=== PATIENT | female | born 1985 | race Caucasian/White ===

== ENCOUNTER 2019-11-30 06:57 | Inpatient (IN) | payer MEDICAID ==
[~2019-11-30] VITALS: Ht 167.6 cm; Wt 109.8 kg
[2019-11-30] MEDS: LACTATED RINGERS 1,000 ML IV SCH ×2 (00:46→08:57)
[2019-11-30] MEDS ORDERED: CARBOPROST 250 MCG/ML AMP IM PRN (07:55)
[2019-11-30] MEDS ORDERED: PROMETHAZINE 25 MG/ML VIAL IVP PRN (07:55)
[2019-11-30] MEDS ORDERED: NALBUPHINE 10 MG/ML AMP IVP PRN (07:55)
[2019-11-30] MEDS ORDERED: OXYTOCIN 20 UNITS in LACTATED RINGERS 1,000 ML IV SCH (07:55)
[2019-11-30] MEDS ORDERED: METHYLERGONOVINE 0.2 MG/ML AMP IM PRN (07:55)
--- NOTE | 2019-11-30 08:33 | NUR ---
PATIENT HAS BEEN SCREENED AND CATEGORIZED LOW NUTRITION RISK. PATIENT WILL BE SEEN WITHIN 7 DAYS OF ADMISSION. 12/06/[address]
[2019-11-30 08:49] LABS: APPEARANCE,URINE CLEAR (CLEAR); BILIRUBIN,URINE NEGATIVE (NEGATIVE); BLOOD, URINE NEGATIVE (NEGATIVE); COLOR,URINE YELLOW (YELLOW); LEUKOCYTE ESTERASE ,URINE TRACE (NEGATIVE); NITRITE, URINE NEGATIVE (NEGATIVE); UGLUCOSE NEGATIVE (NEGATIVE)
[2019-11-30 08:58] LABS: BASOPHILS % (AUTO) 0.3 % (0.0-2.0); EOSINOPHILS # (AUTO) 0.1 K/uL (0-0.4); HEMATOCRIT 36.5 % (36-48); HEMOGLOBIN 12.3 g/dL (12.0-16.0); LYMPHOCYTES # (AUTO) 2.1 K/uL (2.5-16.5); LYMPHOCYTES % (AUTO) 28.7 % (20.5-51.1); MEAN CORPUSCULAR HEMOGLOBIN 30 pg (27-31); MEAN CORPUSCULAR HGB CONC 34 g/dL (33-37); MEAN CORPUSCULAR VOLUME 89.1 fL (80-94); MONOCYTES # (AUTO) 0.5 K/uL (0.8-1.0); MONOCYTES % (AUTO) 6.1 % (1.7-9.3); NEUTROPHILS # (AUTO) 4.7 K/uL (1.8-7.7); NEUTROPHILS % (AUTO) 63.9 % (42.2-75.2); PLATELET COUNT (AUTO) 179 K/uL (140-450); RED BLOOD CELL COUNT(AUTO) 4.09 MIL/uL (4.20-5.40); RED CELL DISTRIBUTION WIDTH 14.1 % (11.6-13.7); WHITE BLOOD COUNT (AUTO) 7.4 K/uL (4.8-10.8)
[2019-11-30 09:10] LABS: RBC,URINE 0-5 /HPF (0-5)
[2019-11-30] MEDS ORDERED: MISOPROSTOL 25 MCG TAB ONE (09:13)
[2019-11-30 09:20] LABS: ALBUMIN 2.6 g/dL (3.4-5.0); ANION GAP 14.5 (8-16); CREATININE 0.5 mg/dL (0.6-1.3); POTASSIUM 3.5 mmol/L (3.5-5.1); TOTAL BILIRUBIN 0.3 mg/dL (0.0-1.0)
[2019-11-30 10:16] VITALS: BP 133/84
[2019-11-30] MEDS ORDERED: MISOPROSTOL 25 MCG TAB VG SCH ×2 (12:00)
[2019-11-30] MEDS: MISOPROSTOL 25 MCG TAB VG SCH ×2 (15:47→22:36)
[2019-12-01] MEDS: LACTATED RINGERS 1,000 ML IV SCH ×3 (04:36→21:45)
[2019-12-01] MEDS ORDERED: OXYTOCIN 20 UNITS/LR PREMIX 1,000 ML IV ONE (08:42)
[2019-12-02] MEDS ORDERED: MISOPROSTOL 25 MCG TAB ONE (13:33)
[2019-12-02] MEDS ORDERED: MISOPROSTOL 25 MCG TAB VG SCH ×2 (14:00→18:00)
[2019-12-03] MEDS ORDERED: OXYTOCIN 20 UNITS/LR PREMIX 1,000 ML IV ONE ×2 (12:27→18:52)
[2019-12-03] MEDS: LACTATED RINGERS 1,000 ML IV SCH (13:06)
[2019-12-03] MEDS ORDERED: fentaNYL 0.05 MG/ML VIAL IVP PRN (16:55)
[2019-12-03] MEDS ORDERED: fentaNYL 0.05 MG/ML VIAL ONE (17:00)
[2019-12-03] MEDS ORDERED: METHYLERGONOVINE 0.2 MG/ML AMP ONE (17:29)
[2019-12-03] MEDS ORDERED: OXYTOCIN 10 UNITS/ML VIAL IM PRN (17:50)
[2019-12-03] MEDS ORDERED: IBUPROFEN 800 MG TAB PO PRN (17:50)
[2019-12-03] MEDS ORDERED: MEASLES, MUMPS, AND RUBELLA 1 VIAL SQVAC PRN (17:50)
[2019-12-03] MEDS ORDERED: METHYLERGONOVINE 0.2 MG/ML AMP IM PRN (17:50)
[2019-12-03] MEDS ORDERED: BISACODYL 5 MG TABEC PO PRN (17:50)
[2019-12-03] MEDS ORDERED: IBUPROFEN 600 MG TAB PO PRN (17:50)
[2019-12-03] MEDS ORDERED: BENZOCAINE/MENTHOL 20%-0.5% 60 GM CAN TP PRN (17:50)
[2019-12-03] MEDS ORDERED: METHYLERGONOVINE 0.2 MG TAB PO PRN (17:50)
[2019-12-03] MEDS ORDERED: CARBOPROST 250 MCG/ML AMP IM PRN (19:05)
[2019-12-04 10:54] LABS: HEMATOCRIT 33.2 % (36-48)
[2019-12-04] MEDS ORDERED: INFLUENZA VACCINE QUAD 0.5 ML SYR IMVAC PRN (22:45)
[2019-12-05] MEDS ORDERED: DOCU-299 PO (07:17)
[2019-12-05] MEDS ORDERED: IBUP-2213 PO (07:17)
== END 2019-12-05 19:10 | disposition home or self-care (01) | DRG 560 ==
LOC: MLD 06:57 → MFCC 12-03 20:45
PROVIDERS: ADMIT Obstetrics & Gynecology; ATTEND Obstetrics & Gynecology
PROC: 10E0XZZ Delivery of Products of Conception, External Approach (ICD-10-PCS; principal; 2019-12-03)
PROC: 10907ZC Drainage of Amniotic Fluid, Therapeutic from Products of Conception, Via Natural or Artificial Opening (ICD-10-PCS; 2019-12-03)
PROC: 3E0234Z Introduction of Serum, Toxoid and Vaccine into Muscle, Percutaneous Approach (ICD-10-PCS; 2019-12-05)
DX: O14.94 Unspecified pre-eclampsia, complicating childbirth (principal); E66.9 Obesity, unspecified; Z37.0 Single live birth; O99.214 Obesity complicating childbirth; Z3A.37 37 weeks gestation of pregnancy; Z23 Encounter for immunization
CPT/HCPCS: 36415; 59200; 59409; 76815; 80053; 81001; 85018; 85025; 86592; 86886; 86900; 86901; 87086; 90715; J2210; J2300; J2550; J2590; J3010; J7120; Q0092

== ENCOUNTER 2021-03-01 15:47 | Emergency (ER) | payer MEDICAID ==
[~2021-03-01] VITALS: Ht 167.6 cm; Wt 98.0 kg
[~2021-03-01 15:47] MED LIST: DOCU-299 PO; IBUP-2213 PO
[2021-03-01 15:49] VITALS: BP 146/81
--- NOTE | 2021-03-01 15:56 | NUR ---
Patient ambulated to bed 8. RN evaluating the patient at bedside.
--- NOTE | 2021-03-01 16:18 | NUR ---
35 Y/O F BIB SELF FROM HOME, PATIENT PRESENTS TO ED WITH LLQ PAIN THAT DOES NOT RADIATE, PAIN STARTED 02/24/21 AND HAS BEEN HAVING DARK RED BLEEDING DURING BM AND RECTAL PAIN. PT STATES SHE FEELS THROBBING IN HER RECTUM AND HAS BEEN HAVING CONSTIPATION SINCE . DENIES N/V/D; SKIN IS PINK/WARM/DRY; AAOX4 WITH EVEN AND STEADY GAIT; LUNGS CLEAR BL; HR EVEN AND REGULAR; PT DENIES ANY FEVER, CP, SOB, OR COUGH AT THIS TIME; PATIENT STATES PAIN OF 6/10 AT THIS TIME; VSS; PATIENT POSITIONED FOR COMFORT; HOB ELEVATED; BEDRAILS UP X2; BED DOWN. ER MD MADE AWARE OF PT STATUS. PT LAST BM WAS 03/01/21, STOOL NOT HARD. BOWEL SOUNDS IN ALL QUADRANTS. PMH: NONE MEDS: COLACE NKA
[2021-03-01 16:28] LABS: BASOPHILS % (AUTO) 0.5 % (0.0-2.0); EOSINOPHILS # (AUTO) 0.4 K/uL (0-0.4); EOSINOPHILS % (AUTO) 6.7 % (0.0-4.0); HEMATOCRIT 41.1 % (36-48); HEMOGLOBIN 13.8 g/dL (12.0-16.0); LYMPHOCYTES # (AUTO) 2.3 K/uL (2.5-16.5); LYMPHOCYTES % (AUTO) 38.2 % (20.5-51.1); MEAN CORPUSCULAR HEMOGLOBIN 30 pg (27-31); MEAN CORPUSCULAR HGB CONC 34 g/dL (33-37); MEAN CORPUSCULAR VOLUME 88.7 fL (80-94); MONOCYTES # (AUTO) 0.4 K/uL (0.8-1.0); MONOCYTES % (AUTO) 6.7 % (1.7-9.3); NEUTROPHILS # (AUTO) 2.9 K/uL (1.8-7.7); NEUTROPHILS % (AUTO) 47.9 % (42.2-75.2); PLATELET COUNT (AUTO) 234 K/uL (140-450); RED BLOOD CELL COUNT(AUTO) 4.64 MIL/uL (4.20-5.40); RED CELL DISTRIBUTION WIDTH 13.5 % (11.6-13.7); WHITE BLOOD COUNT (AUTO) 6.1 K/uL (4.8-10.8)
[2021-03-01 16:39] LABS: ALBUMIN 3.9 g/dL (3.4-5.0); ANION GAP 10.3 (8-16); CARBON DIOXIDE 26.4 mmol/L (21-32); CREATININE 0.9 mg/dL (0.6-1.3); POTASSIUM 3.7 mmol/L (3.5-5.1); TOTAL BILIRUBIN 0.2 mg/dL (0.0-1.0)
[2021-03-01] MEDS ORDERED: HYDR-2734 TP (17:04)
[2021-03-01 17:40] VITALS: BP 146/81
--- NOTE | 2021-03-01 17:41 | NUR ---
Patient discharged with v/s stable. Written and verbal after care instructions given and explained. Patient alert, oriented and verbalized understanding of instructions. Ambulatory with steady gait. All questions addressed prior to discharge. ID band removed. Patient advised to follow up with PMD. Rx of HYDROCORTISONE given. Patient educated on indication of medication including possible reaction and side effects. Opportunity to ask questions provided and answered.
== END 2021-03-01 17:41 | disposition home or self-care (01) ==
LOC: MED 15:47
DX: K60.2 Anal fissure, unspecified (principal); K59.00 Constipation, unspecified
CPT/HCPCS: 36415; 80053; 84702; 85025; 99283

== ENCOUNTER 2022-09-29 11:58 | Inpatient (IN) | payer MEDICAID ==
[~2022-09-29] VITALS: Ht 167.6 cm; Wt 114.3 kg
[~2022-09-29 11:58] MED LIST changes: +HYDR-2734 TP
[2022-09-29] MEDS ORDERED: OXYTOCIN 20 UNITS in LACTATED RINGERS 1,000 ML IV SCH (12:30)
[2022-09-29] MEDS ORDERED: METHYLERGONOVINE 0.2 MG/ML AMP IM PRN (12:30)
[2022-09-29] MEDS ORDERED: MORPHINE SULFATE 5 MG/ML VIAL IVP PRN (12:30)
[2022-09-29] MEDS ORDERED: CARBOPROST 250 MCG/ML AMP IM PRN (12:30)
[2022-09-29] MEDS: LACTATED RINGERS 1,000 ML IV SCH ×2 (12:55→23:43)
[2022-09-29 13:00] VITALS: BP 119/83
[2022-09-29] MEDS ORDERED: PNV91TAB8 PO (14:04)
[2022-09-29 14:11] LABS: BASOPHILS % (AUTO) 0.3 % (0.0-2.0); EOSINOPHILS # (AUTO) 0.1 K/uL (0-0.4); EOSINOPHILS % (AUTO) 1.1 % (0.0-4.0); HEMATOCRIT 35.6 % (36-48); HEMOGLOBIN 12.1 g/dL (12.0-16.0); LYMPHOCYTES # (AUTO) 2.2 K/uL (2.5-16.5); LYMPHOCYTES % (AUTO) 29.3 % (20.5-51.1); MEAN CORPUSCULAR HEMOGLOBIN 29 pg (27-31); MEAN CORPUSCULAR HGB CONC 34 g/dL (33-37); MEAN CORPUSCULAR VOLUME 86.7 fL (80-94); MONOCYTES # (AUTO) 0.5 K/uL (0.8-1.0); MONOCYTES % (AUTO) 7.3 % (1.7-9.3); NEUTROPHILS # (AUTO) 4.6 K/uL (1.8-7.7); PLATELET COUNT (AUTO) 208 K/uL (140-450); RED BLOOD CELL COUNT(AUTO) 4.11 MIL/uL (4.20-5.40); WHITE BLOOD COUNT (AUTO) 7.5 K/uL (4.8-10.8)
[2022-09-29 14:19] LABS: APPEARANCE,URINE CLEAR (CLEAR); BILIRUBIN,URINE 1+ (NEGATIVE); BLOOD, URINE NEGATIVE (NEGATIVE); COLOR,URINE BROWN (YELLOW); LEUKOCYTE ESTERASE ,URINE TRACE (NEGATIVE); NITRITE, URINE NEGATIVE (NEGATIVE); UGLUCOSE NEGATIVE (NEGATIVE)
[2022-09-29 14:31] LABS: PROTHROMBIN TIME 9.4 secs (10.8-13.4)
[2022-09-29 14:32] LABS: RBC,URINE 0-5 /HPF (0-5)
[2022-09-29 14:33] LABS: OTHER CASTS, URINE None Seen /LPF (None Seen)
[2022-09-29 14:35] LABS: ALBUMIN 2.4 g/dL (3.4-5.0); ANION GAP 14.5 (8-16); CARBON DIOXIDE 21.3 mmol/L (21-32); CREATININE 0.6 mg/dL (0.6-1.3); POTASSIUM 3.8 mmol/L (3.5-5.1); TOTAL BILIRUBIN 0.2 mg/dL (0.0-1.0)
[2022-09-29] MEDS: MISOPROSTOL 25 MCG TAB VG PRN ×2 (14:52→21:06)
[2022-09-29] MEDS ORDERED: MORPHINE SULFATE 10 MG/ML VIAL ONE (21:55)
[2022-09-30] MEDS ORDERED: MORPHINE SULFATE 10 MG/ML VIAL ONE (00:13)
[2022-09-30] MEDS: ONDANSETRON 4 MG/2 ML VIAL IVP PRN (00:20)
--- NOTE | 2022-09-30 09:41 | NUR ---
PATIENT HAS BEEN SCREENED AND CATEGORIZED LOW NUTRITION RISK. PATIENT WILL BE SEEN WITHIN 7 DAYS OF ADMISSION. 10/06/[address]
[2022-09-30] MEDS: MISOPROSTOL 25 MCG TAB VG PRN (19:41)
[2022-09-30] MEDS: LACTATED RINGERS 1,000 ML IV SCH (23:05)
[2022-10-01] MEDS ORDERED: MORPHINE SULFATE 10 MG/ML VIAL ONE (01:40)
[2022-10-01] MEDS: ONDANSETRON 4 MG/2 ML VIAL IVP PRN (01:48)
[2022-10-01 01:49] VITALS: BP 156/86
[2022-10-01] MEDS ORDERED: NALBUPHINE 10 MG/ML AMP IVP SCH (03:05)
[2022-10-01] MEDS ORDERED: OXYTOCIN 20 UNITS/LR PREMIX 1,000 ML IV ONE (03:21)
[2022-10-01] MEDS: LACTATED RINGERS 1,000 ML IV SCH (03:33)
[2022-10-01] MEDS ORDERED: MISOPROSTOL 200 MCG TAB ONE ×2 (04:19→04:21)
[2022-10-01] MEDS ORDERED: MISOPROSTOL 200 MCG TAB PO SCH ×2 (04:45→06:55)
[2022-10-01] MEDS ORDERED: IBUPROFEN 800 MG TAB PO PRN (17:35)
[2022-10-01] MEDS ORDERED: DOCUSATE SODIUM 100 MG GELCAP PO SCH (21:00)
[2022-10-02 06:19] LABS: HEMATOCRIT 34.8 % (36-48); HEMOGLOBIN 11.7 g/dL (12.0-16.0)
== END 2022-10-02 12:55 | disposition home or self-care (01) | DRG 560 ==
LOC: MLD 11:58 → MFCC 10-01 08:30
PROVIDERS: ADMIT Obstetrics & Gynecology; ATTEND Obstetrics & Gynecology
PROC: 10E0XZZ Delivery of Products of Conception, External Approach (ICD-10-PCS; principal; 2022-10-01)
DX: O99.214 Obesity complicating childbirth (principal); Z37.0 Single live birth; Z20.822 Contact with and (suspected) exposure to COVID-19; Z3A.37 37 weeks gestation of pregnancy; O10.913 Unspecified pre-existing hypertension complicating pregnancy, third trimester
CPT/HCPCS: 36415; 59200; 59409; 76815; 80053; 81001; 85018; 85025; 85610; 85730; 86592; 86886; 86900; 86901; 87086; J2270; J2300; J2405; J2590; Q0092